=== PATIENT | male | born 1950 | race Caucasian/White ===

== ENCOUNTER 2020-05-26 13:15 | Emergency (ER) | payer OTHER, MEDICARE, MEDICAID, SELFPAY ==
--- NOTE | ~2020-05-26 | CT_ITS ---
EXAMINATION: CT brain wo con DATE: 05/26/2020 14:12 INDICATION: Head injury. TECHNIQUE: Computed tomography (CT) of the head was performed without intravenous contrast. The mA wa s adjusted according to patient size. Iterative reconstruction technique was employed. The dose-lengt h product was 605.33 mGy-cm. COMPARISON: Head CT 12/15/2018 FINDINGS: There are scattered areas of low attenuation in the cerebral white matter. There is no intr acranial hemorrhage, acute infarction, or abnormal intracranial mass lesion. The ventricles are benjamin l in size. There are likely changes of ocular lens replacement surgeries. There is mild mucosal thick ening in the paranasal sinuses. The mastoid air cells are normal. IMPRESSION: 1. Mild nonspecific cerebral white matter disease, which likely represents chronic small vessel ische kelsy disease, worsened from 12/15/2018. Reviewed, dictated and finalized at location A. DENTIAL ENERGY AUDITOR IMPRESSION: 1. Mild nonspecific cerebral white matter disease, which likely represents artillery officer leandro small vessel ischemic disease, worsened from 12/15/2018.
--- NOTE | ~2020-05-26 | CT_ITS ---
EXAMINATION: CT cervical spine wo [facility] EXAM DATE: 05/26/2020 14:12 INDICATION: Fall, head injury. TECHNIQUE: Spiral CT of the cervical spine was performed without contrast. Axial images were reviewe d. Coronal and sagittal reformatted images were also reviewed. The dose-length product (DLP) for thi s examination was 134.98 mGy-cm. The exposure was tailored according to patient size (auto mA exposu re control), and iterative reconstruction (ASIR) was used as additional dose reduction technique. ere is no prior study for comparison. FINDINGS: There is advanced mid cervical facet arthropathy. The vertebral bodies are aligned in the A P dimension. Mild diffuse loss of cervical vertebral body heights. No acute fracture. The odontoid pr ocess is intact. The lateral masses of C1 line up with C2. Prevertebral soft tissue and pre-dens spa ce are within normal limits. Severe apical emphysema. Biapical scarring. IMPRESSION: 1. No acute cervical findings. 2. Advanced mid cervical arthropathy. Reviewed, dictated and finalized at location B. ER OPERATOR
[2020-05-26 13:16] VITALS: BP 141/90; PULSE 96; RESP 16; TEMP 36.6; O2SAT 98
--- NOTE | 2020-05-26 16:26 | ED.GENADULT ---
HPI - General Adult General Chief complaint: Fall Stated complaint: FALL Time Seen by Provider: 05/26/20 13:41 Source: patient and other (skilled nursing) Mode of arrival: EMS Limitations: altered mental status (Patient's baseline) History of Present Illness HPI narrative: Patient presents with chief complaint of laceration to the left side of his head that he sustained while falling at the intermediate today. Patient is normally alert only to person at his baseline per the intermediate staff. 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 They state the patient is acting normally per his baseline. They deny loss of consciousness, vomiting complaints of chest pain or shortness of breath. Related Data Home Medications Medication Instructions Recorded Confirmed acetaminophen 650 mg PO ONCE 05/26/20 docusate sodium [Colace] 50 mg PO BID 05/26/20 hyoscyamine sulfate [Levsin/SL] 0.125 mg PO TID 05/26/20 ipratropium-albuterol 3 ml INHALATION Q4H PRN 05/26/20 lorazepam 1 mg PO Q2-3H PRN 05/26/20 lorazepam [Ativan] See Rx Instructions .ROUTE 05/26/20 .COMPLEX PRN morphine 10 mg PO Q2-3H PRN 05/26/20 morphine 10 mg PO Q6H 05/26/20 nitroglycerin 0.4 mg SUBLINGUAL ONCE 05/26/20 Allergies Allergy/AdvReac Type Severity Reaction Status Date / Time No Known Allergies Allergy Unverified 12/15/18 05:24 Review of Systems Review of Systems: Narrative: CONSTITUTIONAL: Denies fever, chills, or sweats. EYES: Denies visual changes, redness, or discharge. ENT: Denies rhinorrhea, congestion, sore throat, or otalgia. CARDIOVASCULAR: Denies chest pain, palpitations, or edema. RESPIRATORY: Denies cough or dyspnea. GASTROINTESTINAL: Denies abdominal pain, nausea, vomiting, or diarrhea. GENITOURINARY: Denies dysuria or hematuria. SKIN: Reports scalp Laceration denies rash or itching. MUSCULOSKELETAL: Denies back pain, joint pain, or myalgia. NEUROLOGIC: Denies headache, numbness, dizziness, or weakness. PSYCHIATRIC: Denies anxiety or depression. Exam Narrative: Exam Narrative: GENERAL: Well-appearing, well-nourished, and in no acute distress. HEAD: 3 inch laceration to the left side of patient's area. well approximated with minimal bleeding. EYES: PERRLA and EOMI. ENT: Nares clear, no rhinorrhea or epistaxis. Mucous membranes moist. Oropharynx without tonsillar hypertrophy exudate or other lesions. Bilateral TMs pearly tejada nonbulging no hemotympanum. NECK: Supple. No adenopathy or masses. Range of motion intact. CHEST: Clear to auscultation. No respiratory distress. No wheezes rales or rhonchi HEART: Regular rate and rhythm. ABDOMEN: Soft, nontender, nondistended, no bruises noted. Normal active bowel sounds. EXTREMITIES: Diffuse chronic bruises in different stages of healing to the patient's arms. No bony tenderness. Normal range of motion. No edema. SKIN: Warm, dry, no rash. NEURO: No focal deficits. Alert to person. Patient speech is not slurred but it is not appropriate to the questions being asked. I am told by nurse that intermediate staff states that patient is at his baseline. Course Vital Signs Vital signs: Vital Signs Temperature 97.9 F 05/26/20 13:16 Pulse Rate 96 05/26/20 13:16 Respiratory Rate 16 05/26/20 13:16 Blood Pressure 141/90 H 05/26/20 13:16 Pulse Oximetry 98 05/26/20 13:16 Temperature 97.9 F 05/26/20 13:16 Pulse Rate 96 05/26/20 13:16 Respiratory Rate 16 05/26/20 13:16 Blood Pressure 141/90 H 05/26/20 13:16 Pulse Oximetry 98 05/26/20 13:16 Procedures Laceration Laceration 1: Site: scalp Side (If applicable): left Size (cm): 7 Description: linear and clean Depth: simple, single layer Local Anesthetic: lidocaine 1% Amount of anesthesia used (mL): 4.5 Pre-repair: irrigated extensively ====== Skin Level ====== Skin layer closed with: haroldo ====== Subcutaneous Layer =====
[2020-05-26 17:30] VITALS: BP 134/58; PULSE 94; RESP 22; O2SAT 100
--- NOTE | 2020-05-26 17:43 | PC.NURSE ---
1700- Hospice called in regard to patient update. Information on staple removal and antibiotic ointment given to hospice personnel.
--- NOTE | 2020-05-26 17:45 | PC.NURSE ---
Attempted to call [facility] to give report. No answer after multiple attempts.
== END 2020-05-26 18:27 | disposition hospice, home (50) ==
PROVIDERS: Emergency Provider Emergency Medicine; PCP Internal Medicine
DX: S01.01XA Laceration without foreign body of scalp, initial encounter (principal); J44.9 Chronic obstructive pulmonary disease, unspecified; G93.40 Encephalopathy, unspecified; R90.82 White matter disease, unspecified; W19.XXXA Unspecified fall, initial encounter
CPT/HCPCS: 12002; 70450; 72125; 99284